=== PATIENT | male | born 1945 | race Caucasian/White ===

== ENCOUNTER 2025-05-22 15:21 | Outpatient (REF) | payer MEDICARE, SELFPAY ==
[2025-05-22 18:11] LABS: ESR 15 mm/hr (0-20)
[2025-05-27 10:54] LABS: Lyme Ab w Rflx to Lyme Confirm Positive (Negative)
[2025-05-27 12:59] LABS: Lyme IgG Ab Negative (Negative)
[2025-05-27 15:03] LABS: B. miyamotoi PCR Negative (Negative); Babesia divergens/MO-1 Negative (Negative); Ehrlichia muris eauclairensis Negative (Negative)
== END 2025-05-22 15:22 | disposition home or self-care (01) ==
LOC: NCHCN 15:21
PROVIDERS: Visit Provider Family Medicine
DX: M25.50 Pain in unspecified joint (principal)
CPT/HCPCS: 85652; 86200; 86617; 87798; 86038; 86431; 86618